=== PATIENT | female | born 1975 | race Two or more races ===

== ENCOUNTER 2018-04-11 09:51 | Emergency (ER) | payer MEDICAID ==
[~2018-04-11] VITALS: Ht 160 cm; Wt 77.1 kg
[2018-04-11] MEDS ORDERED: TETRACAINE HCL 0.5% OPTH(EYE) SOLN 4ML RIGHTEYE ONE (11:00)
[2018-04-11 11:09] VITALS: BP 123/60
== END 2018-04-11 12:06 | disposition home or self-care (01) ==
LOC: ER 09:51
DX: B99.8 Other infectious disease (principal); H10.31 Unspecified acute conjunctivitis, right eye